=== PATIENT | female | born 1985 | race Caucasian/White ===

== ENCOUNTER 2023-07-24 17:37 | Inpatient (IN) ==
[2023-07-24] MEDS ORDERED: Lidocaine 1% VIAL 10 MG/ML 30 ML VIAL INJ PRN (19:21)
[2023-07-24] MEDS: Dinoprostone 10 MG VAG.SUPP VAGINAL ONE (20:20)
[2023-07-24 20:21] LABS: Urine Benzodiazepine Screen None Detected (None Detect); Urine Cannabinoids Screen None Detected (None Detect); Urine Opiates Screen None Detected (None Detect)
[2023-07-25] MEDS: Prochlorperazine 5 mg/ml 2 ml VIAL (10 mg) IV ONE (02:44)
[2023-07-25] MEDS: Morphine 10 MG/ML VIAL (1 ml) IV ONE (02:47)
[2023-07-25] MEDS: Lactated Ringers 1000 ml BAG 1,000 ML IV ONE ×2 (02:57→12:47)
[2023-07-25 03:13] LABS: ABS Basophils 0.1 10^3/uL (0.0-0.1); ABS Eosinophils 0.2 10^3/uL (0.0-0.5); ABS Lymphocytes 1.7 10^3/uL (1.0-4.8); ABS Neutrophils 13.8 10^3/uL (1.5-7.6); ABS Nucleated RBC 0.01 10^3/ul; Eosinophil % 1.4 %; Hematocrit 37.7 % (35-45); Hemoglobin 13.4 g/dL (11.5-14.3); Lymphocyte % 10.1 %; Mean Corpuscular Hemoglobin 32.5 pg (27-33); Mean Corpuscular Hgb Conc 35.5 g/dL (31-36); Mean Corpuscular Volume 91.7 fL (80-97); Mean Platelet Volume 9.7 fL (7.5-11.2); Platelet Count 213 10^3/uL (150-450); Red Blood Count 4.12 10^6/uL (3.63-4.92); Red Cell Distribution Width 12.9 % (12-17); White Blood Count 16.8 10^3/uL (3.8-11.8)
[2023-07-25 04:03] LABS: Albumin 3.3 g/dL (3.2-5.2); Albumin/Globulin Ratio 1.3 (1-3); Calcium 8.1 mg/dL (8.6-10.3); Creatinine, Serum 0.52 mg/dL (0.51-0.95); Globulin 2.6 g/dL (2-4); Potassium 3.9 mmol/L (3.5-5.0); Total Bilirubin 0.3 mg/dL (0.2-1.0); Total Protein 5.9 g/dL (6.4-8.9); eGFR CKD-EPI 123.4 (>60)
[2023-07-25 06:31] LABS: Urine Creatinine Concentration 126.96 mg/dL (20.00-320.00); Urine TP Creat Ratio 0.3 mg/mg
[2023-07-25] MEDS: Lactated Ringers 1000 ml BAG 1,000 ML IV SCH ×3 (08:00→21:12)
[2023-07-25] MEDS: Lidocaine 1.5% EPI 1:200,000 30 ML SDV ONE (08:30)
[2023-07-25] MEDS: OBEPIDURAL (200 ML) 200 ML EPIDURAL SCH (08:30)
[2023-07-25] MEDS ORDERED: Phenylephrine 40 mcg/mL 10mL (400mcg) SYRINGE IV PUSH PRN ×2 (08:46)
[2023-07-25] MEDS ORDERED: Lactated Ringers 1000 ml BAG 500 ML IV PRN ×2 (08:46)
[2023-07-25] MEDS ORDERED: Sodium Citrate/Citric Acid LIQ 15 ML UDC PO PRN (08:46)
[2023-07-25] MEDS ORDERED: Famotidine IV 10 MG/ML 2 ml VIAL (20 mg) IV PRN (08:46)
[2023-07-25 09:58] LABS: Urine Appearance Clear; Urine Bilirubin Negative (Negative); Urine Blood Negative (Negative); Urine Color Yellow; Urine Glucose Negative (Negative); Urine Ketones Trace (Negative); Urine Nitrite Negative (Negative); Urine Protein 1+ (>=30 mg/dL) (Negative); Urine Specific Gravity 1.024 (1.002-1.030); Urine Urobilinogen Negative (Negative)
[2023-07-25 10:14] LABS: Urine Bacteria 1+ /HPF (Absent); Urine Red Blood Cell 3+(>10/hpf) /HPF (0-Trace); Urine White Blood Cell Trace(0-5/hpf) /HPF (0-Trace)
[2023-07-25] MEDS: Buffered Lidocaine 1% SYRIN 1 ml INTRADERM ONE (11:08)
[2023-07-25] MEDS: OBEPIDURAL (200 ML) 200 ML EPIDURAL ONE (11:09)
[2023-07-25] MEDS: Oxytocin in LR 20,000 MILLI.UNIT/1,000 ML BAG IV SCH ×2 (11:10→17:09)
[2023-07-25] MEDS ORDERED: Glycerin ADULT 2.4 gm SUPP PR PRN (13:17)
[2023-07-25] MEDS: Dibucaine 1% OINT 28.35 GM TUBE PR PRN (14:32)
[2023-07-25] MEDS: Witch Hazel PAD JAR TOPICAL PRN (14:33)
[2023-07-26 07:03] LABS: ABS Basophils 0.1 10^3/uL (0.0-0.1); ABS Eosinophils 0.2 10^3/uL (0.0-0.5); ABS Lymphocytes 2.2 10^3/uL (1.0-4.8); ABS Monocytes 0.9 10^3/uL (0.0-0.9); ABS Neutrophils 10.7 10^3/uL (1.5-7.6); Eosinophil % 1.1 %; Hematocrit 31.9 % (35-45); Hemoglobin 11.1 g/dL (11.5-14.3); Lymphocyte % 15.5 %; Mean Corpuscular Hgb Conc 34.7 g/dL (31-36); Mean Corpuscular Volume 92.1 fL (80-97); Mean Platelet Volume 9.1 fL (7.5-11.2); Platelet Count 162 10^3/uL (150-450); Red Blood Count 3.47 10^6/uL (3.63-4.92); Red Cell Distribution Width 12.9 % (12-17)
[2023-07-26] MEDS: CMCS: Amphetamine/Dextroam ER 10(NF) 10 mg CAP.ER PO SCH (07:46)
[2023-07-26] MEDS: Oxytocin in LR 20,000 MILLI.UNIT/1,000 ML BAG IV SCH (07:47)
[2023-07-27 11:38] VITALS: BP 139/89
== END 2023-07-27 11:47 | disposition home or self-care (01) | DRG 560 ==
LOC: MCHOBOUT 17:37 → MCHOB 19:05
PROVIDERS: ADMIT Midwife; ATTEND Advanced Practice Midwife